=== PATIENT | female | born 1960 | race American Indian/Alaskan Native ===

== ENCOUNTER 2019-01-17 11:18 | Outpatient (CLI) | payer BC, OTHER ==
--- NOTE | 2019-01-17 15:00 | Mammography Report ---
BONE DEXA CLINICAL: Postmenopausal TECHNIQUE: 2 site bone DEXA performed on an Hologic scanner. FINDINGS: The average BMD of the lumbar spine L1-L3 is 1.067g/cm squared with a T score of -0.5 and a Z score o f +1.1. The L4 vertebral body was excluded from the measurement as an outlier. The average total BMD of the left hip is 0.916 g/cm squared with a T score of -0.7and a Z score of +0 .1. The left femoral neck BMD is 0.711 g/cm squared with a T score of -1.7 and a Z score of -0.6. IMPRESSION: 1. WHO classification: Normal with average fracture risk based on spine and total left hip measuremen ts. 2. WHO classification Osteopenia with increased fracture risk based on left femoral neck measurements . RECOMMENDATION: Clinical correlation and routine screening. Definitions: BMD equal bone mineral density T score = BMD related to peak bone mass of young adult (Pilar expressed an standard deviation) Z score = age-matched BMD expressed in SD World health organization (WHO) diagnostic criteria Normal T score greater than equal to 1 standard deviation Osteopenia T score between -1 and -2.4 standard deviation Osteoporosis T score -2.5 standard deviation or below. Note: BMD is not the only risk factor for fracture; also consider factors such as the patient's age, risk of falling, previous osteoporotic fracture, family history of osteoporotic fractures, current sm oker and low body weight. Z scores are not calculated if greater than 80 years of age. Signer Name: Osmani Knight MD Signed: 01/17/2019 2:55 PM Workstation Name: [id number]
--- NOTE | 2019-01-17 15:04 | Mammography Report ---
DIGITAL SCREENING MAMMOGRAM WITH CAD, 01/17/2019 INDICATION: Routine screening mammography. TECHNIQUE: Digital bilateral 2D mammography was obtained in the craniocaudal and mediolateral obliq ue projections. This examination was interpreted with the benefit of Computer-Aided Detection analysi s. COMPARISON: None available. FINDINGS: Breast Density: The breasts are heterogeneously dense, which may obscure small masses. There is no evidence of dominant mass, suspicious calcifications or architectural distortion in eithe r breast. IMPRESSION: No mammographic evidence of malignancy. Follow up recommendation: Routine yearly BI-RADS Category 1: Negative. A "normal" or negative report should not discourage follow up or biopsy of a clinically significant f inding. A written summary of these findings will be mailed to the patient. The patient will be entered into a mammography reporting system which will generate a reminder letter for the patient's next appointmen t at the appropriate interval. The [employer] recommends yearly mammograms starting at age 40 and continuing as l charlene as a woman is in good health. Breast MRI is recommended for women with an approximate 20-25% or greater lifetime risk of breast cancer, including women with a strong family history of breast or ova silvia cancer or who have been treated for Hodgkin's disease. Signer Name: Osmani Knight MD Signed: 01/17/2019 3:00 PM Workstation Name: [id number]
== END 2019-01-17 11:19 | disposition home or self-care (01) ==
LOC: SPVWC 11:18
PROVIDERS: ATTEND Family Medicine
DX: Z12.31 Encounter for screening mammogram for malignant neoplasm of breast (principal); M85.88 Other specified disorders of bone density and structure, other site; Z78.0 Asymptomatic menopausal state
CPT/HCPCS: 77067; 77080

== ENCOUNTER 2020-03-18 11:21 | Outpatient (CLI) | payer BC, OTHER ==
--- NOTE | 2020-03-18 15:35 | Mammography Report ---
DIGITAL SCREENING MAMMOGRAM WITH CAD, 03/18/2020 CLINICAL INFORMATION / INDICATION: Routine screening mammography. TECHNIQUE: Digital bilateral 2D mammography was obtained in the craniocaudal and mediolateral obliqu e projections. This examination was interpreted with the benefit of Computer-Aided Detection analysis . COMPARISON: 01/17/2019 FINDINGS: Breast Density: The breasts are heterogeneously dense, which may obscure small masses. No dominant mass, suspicious calcifications, or architectural distortion in either breast. IMPRESSION: No mammographic evidence of malignancy. Follow up recommendation: Routine yearly BI-RADS Category 1: Negative. A "normal" or negative report should not discourage follow up or biopsy of a clinically significant f inding. A written summary of these findings will be mailed to the patient. The patient will be entered into a mammography reporting system which will generate a reminder letter for the patient's next appointmen t at the appropriate interval. The [employer] recommends yearly mammograms starting at age 40 and continuing as l charlene as a woman is in good health. Breast MRI is recommended for women with an approximate 20-25% or greater lifetime risk of breast cancer, including women with a strong family history of breast or ova silvia cancer or who have been treated for Hodgkin's disease. Signer Name: Feliberto Galvez MD Signed: 03/18/2020 3:30 PM Workstation Name: [id number]
== END 2020-03-18 11:22 | disposition home or self-care (01) ==
LOC: SPVWC 11:21
PROVIDERS: ATTEND Family Medicine
DX: Z12.31 Encounter for screening mammogram for malignant neoplasm of breast (principal)
CPT/HCPCS: 77067